=== PATIENT | male | born 1965 | race African-American/Black ===

== ENCOUNTER 2018-03-05 09:04 | Emergency (ER) | payer BC, OTHER ==
[2018-03-05] MEDS ORDERED: Ketorolac Tromethamine 30 MG/ML VIAL ONE (09:25)
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
== END 2018-03-05 10:52 | disposition home or self-care (01) ==
LOC: ERS 09:04
DX: M54.5 Low back pain (principal); I10 Essential (primary) hypertension; V69.40XA Driver of heavy transport vehicle injured in collision with unspecified motor vehicles in traffic accident, initial encounter
CPT/HCPCS: 72100; 72170; 96372; J1885